=== PATIENT | female | born 1960 | race Caucasian/White ===

== ENCOUNTER 2019-04-28 17:40 | Outpatient (CLI) | payer OTHER, SELFPAY ==
--- NOTE | ~2019-04-28 | XR_ITS ---
EXAMINATION: XR chest 2V EXAM DATE: 04/28/2019 17:59 INDICATION: Cough, history of bronchitis and asthma. TECHNIQUE: Frontal and lateral projections of the chest obtained and reviewed. Comparison is made to prior examination from 09/12/2014. FINDINGS: There are cholecystectomy clips. The lungs are clear. There are no pleural effusions. Th e cardiomediastinal silhouette is within normal limits. There is no pneumothorax suspected. The bon es and soft tissues are unremarkable. IMPRESSION: No acute cardiopulmonary findings. Reviewed, dictated and finalized at location A. UCTION OFFICER
== END 2019-04-28 17:41 | disposition home or self-care (01) ==
LOC: ANHIMG 17:44
PROVIDERS: PCP Family Medicine; Visit Provider Family Medicine
DX: R05 Cough (principal)
CPT/HCPCS: 71046

== ENCOUNTER → 2019-07-19 10:40 | Outpatient (REF) | payer OTHER, SELFPAY | LOC: ANHLAB 10:40 | PROVIDERS: PCP Family Medicine; Visit Provider Nurse Practitioner | DX: D49.2 Neoplasm of unspecified behavior of bone, soft tissue, and skin (principal) | CPT/HCPCS: 88305 ==

== ENCOUNTER 2019-12-06 16:46 | Outpatient (CLI) | payer OTHER, SELFPAY ==
--- NOTE | ~2019-12-06 | MM_ITS ---
EXAMINATION: MM screening [facility] BI w autumn HISTORY: Screening TECHNIQUE: Craniocaudal and mediolateral oblique 3-D tomosynthesis images were obtained and synthetic 2-D images were generated. CAD analysis was submitted and interpreted. COMPARISON: Comparison to multiple prior studies sequentially, with oldest reviewed study dated 09/20. BREAST PARENCHYMAL COMPOSITION: There are scattered areas of fibroglandular density. FINDINGS: There is focal asymmetry laterally in the left breast on CC view. Right breast is stable wi thout evidence for malignancy. IMPRESSION: 1. Focal asymmetry laterally in the left breast on CC view. 2. Additional mammographic views and possible breast ultrasound are recommended. BI-RADS Category 0: Incomplete: Needs additional imaging evaluation. Reviewed, dictated and finalized at location A. IMPRESSION: 1. Focal asymmetry laterally in the left breast on CC view. 2. Additional mammographic views and possible breast ultrasound are recommended . BI-RADS Category 0: Incomplete: Needs additional imaging evaluation.
== END 2019-12-06 16:47 | disposition home or self-care (01) ==
PROVIDERS: PCP Family Medicine; Visit Provider Obstetrics & Gynecology
DX: Z12.31 Encounter for screening mammogram for malignant neoplasm of breast (principal); R92.8 Other abnormal and inconclusive findings on diagnostic imaging of breast
CPT/HCPCS: 77063; 77067

== ENCOUNTER 2019-12-20 13:54 | Outpatient (CLI) | payer OTHER, SELFPAY ==
--- NOTE | ~2019-12-20 | MMUS_ITS ---
EXAMINATION: MM diagnostic mammo unilat LT, US breast LT limited HISTORY: Left breast asymmetry on screening mammogram TECHNIQUE: Additional 3-D tomosynthesis images of the left breast were performed and synthetic 2-D im ages were generated. CAD analysis was submitted and interpreted. High resolution limited left breast ultrasound was performed. COMPARISON: 12/06/2019, 12/11/2018, 10/27/2017, 10/13/2015, 08/21/2012 FINDINGS: MAMMOGRAPHIC FINDINGS: A persistent asymmetry middle third of the outer breast at the 3:00 location 10 cm from the nipple torres s an appearance similar to prior mammograms with spot compression. There is no suspicious mass, calci fication, or architectural distortion. ULTRASOUND: There is no evidence of focal abnormal solid or cystic lesion in the vicinity of the mammographic fin ding in question. IMPRESSION: 1. No mammographic or sonographic evidence of malignancy. 2. Recommend routine screening mammography in one year. BI-RADS Category 2: Benign finding(s). Reviewed, dictated and finalized at location A. IMPRESSION: 1. No mammographic or sonographic evidence of malignancy. 2. Recommend routine screening mammography in one year. BI-RADS Category 2: Benign finding(s).
== END 2019-12-20 13:55 | disposition home or self-care (01) ==
PROVIDERS: PCP Family Medicine; Visit Provider Obstetrics & Gynecology
DX: R92.8 Other abnormal and inconclusive findings on diagnostic imaging of breast (principal)
CPT/HCPCS: 76642; 77065

== ENCOUNTER 2020-03-24 10:33 | Outpatient (CLI) | payer OTHER, SELFPAY ==
[2020-03-24 11:47] LABS: Alanine Aminotransferase 55 U/L (4-35); Albumin Level 3.9 g/dL (3.5-5.1); Alkaline Phosphatase 122 U/L (38-126); Anion Gap 2 mmol/L (8-16); Aspartate Amino Transferase 53 U/L (14-36); Bilirubin,Total 0.7 mg/dL (0.2-1.3); Blood Urea Nitrogen 16 mg/dL (7-17); Calcium 9.2 mg/dL (8.4-10.2); Carbon Dioxide 32 mmol/L (22-30); Chloride 104 mmol/L (98-107); Cholesterol 195 mg/dL (0-200); Estimated Glomerular Filt Rate > 60; Glucose 96 mg/dL (65-105); HDL Direct 30 mg/dL; Potassium 4.1 mmol/L (3.4-5.0); Sodium 138 mmol/L (137-145); Triglycerides 190 mg/dL (<150)
[2020-03-24 11:58] LABS: LDL Cholesterol Direct 137 mg/dL
[2020-03-24 12:09] LABS: Hemoglobin A1C 5.8 % (<5.7)
[2020-03-24 12:29] LABS: Free T4 Free Thyroxine 0.82 ng/mL (0.78-2.19)
== END 2020-03-24 10:34 | disposition home or self-care (01) ==
PROVIDERS: PCP Family Medicine; Visit Provider Physician Assistant
DX: E03.9 Hypothyroidism, unspecified (principal); R73.03 Prediabetes; E78.5 Hyperlipidemia, unspecified
CPT/HCPCS: 36415; 80053; 80061; 83036; 84439; 84443

== ENCOUNTER 2020-03-29 09:56 | Outpatient (CLI) | payer OTHER, SELFPAY ==
--- NOTE | ~2020-03-29 | US_ITS ---
EXAMINATION: US right upper quadrant EXAM DATE: 03/29/2020 10:25 INDICATION: R79.89 - Other specified abnormal findings of blood chemistry. TECHNIQUE: Multiple grayscale and Doppler images of the abdomen right upper quadrant were obtained (b y a technologist who performed the scan) and subsequently reviewed. Comparison is made to prior exami nation from 01/29/2008. FINDINGS: The pancreatic head and body are normal in appearance. The pancreatic tail is not visualized. There is echogenic liver parenchyma with poor penetration, hepatic steatosis. There are no focal liver le sions identified. There is no evidence of intrahepatic biliary duct dilation. Portal venous flow w as seen in the hepatopedal, normal direction and has normal Doppler waveform. No right-sided hydrone phrosis. Common bile duct measures 11 mm, which is dilated, but not uncommon following cholecystectomy. Gallbl adder fossa unremarkable. IMPRESSION: Hepatic steatosis. Reviewed, dictated and finalized at location B. L COMPANY TRUCK DRIVER IMPRESSION: Hepatic steatosis.
== END 2020-03-29 09:57 | disposition home or self-care (01) ==
PROVIDERS: PCP Family Medicine; Visit Provider Physician Assistant
DX: R79.89 Other specified abnormal findings of blood chemistry (principal); K76.0 Fatty (change of) liver, not elsewhere classified
CPT/HCPCS: 76705

== ENCOUNTER → 2020-05-14 08:17 | Outpatient (CLI) | payer OTHER, SELFPAY ==
[2020-05-14 20:23] LABS: SARS-CoV-2 RNA PCR Positive
== END ==
PROVIDERS: PCP Family Medicine; Visit Provider Family Medicine
DX: U07.1 COVID-19 (principal)
CPT/HCPCS: C9803; U0003; U0005

== ENCOUNTER → 2020-07-09 15:53 | Outpatient (REF) | payer OTHER, SELFPAY | LOC: ANHLAB 15:53 | PROVIDERS: PCP Family Medicine; Visit Provider Nurse Practitioner | DX: D49.2 Neoplasm of unspecified behavior of bone, soft tissue, and skin (principal) | CPT/HCPCS: 88305 ==

== ENCOUNTER 2020-12-22 11:40 | Outpatient (CLI) | payer OTHER, SELFPAY ==
--- NOTE | ~2020-12-22 | MM_ITS ---
EXAMINATION: MM screening [facility] BI w autumn HISTORY: Screening TECHNIQUE: Craniocaudal and mediolateral oblique 3-D tomosynthesis images were obtained and synthetic 2-D images were generated. CAD analysis was submitted and interpreted. COMPARISON: Comparison to multiple prior studies sequentially, with oldest reviewed study dated 10/12. BREAST PARENCHYMAL COMPOSITION: There are scattered areas of fibroglandular density. FINDINGS: There is no evidence of suspicious mass, calcification, or architectural distortion to sugg est malignancy in either breast. There has been no suspicious interval change. IMPRESSION: 1. No mammographic evidence of malignancy. 2. Recommend routine screening mammography in one year. BI-RADS Category 1: Negative Reviewed, dictated and finalized at location A.
[2020-12-22 11:58] LABS: Hematocrit 45.2 % (37.0-47.0); Hemoglobin 14.2 g/dL (12.0-15.0); Mean Corpuscular HGB Conc 31.4 g/dl (32-36); Mean Corpuscular Hemoglobin 29.8 pg (26-34); Mean Corpuscular Volume 94.8 fl (80-100); Mean Platelet Volume 11.8 fl (7.4-10.4); Platelet Count Result 186 k/mm3 (150-375); Red Blood Count 4.77 M/mm3 (4.2-5.4); Red Cell Distribution Width 13.4 % (11.5-14.5); White Blood Count 4.9 K/mm3 (4.5-10.0)
[2020-12-22 12:09] LABS: Hemoglobin A1C 5.9 % (<5.7)
[2020-12-22 12:11] LABS: Alanine Aminotransferase 68 U/L (4-35); Albumin Level 4.2 g/dL (3.5-5.1); Alkaline Phosphatase 125 U/L (38-126); Anion Gap 6 mmol/L (8-16); Aspartate Amino Transferase 54 U/L (14-36); Bilirubin,Total 0.7 mg/dL (0.2-1.3); Blood Urea Nitrogen 17 mg/dL (7-17); Calcium 9.3 mg/dL (8.4-10.2); Carbon Dioxide 30 mmol/L (22-30); Chloride 103 mmol/L (98-107); Cholesterol 219 mg/dL (0-200); Estimated Glomerular Filt Rate > 60; Glucose 104 mg/dL (65-110); HDL Direct 36 mg/dL; Potassium 4.4 mmol/L (3.4-5.0); Sodium 139 mmol/L (137-145); Triglycerides 134 mg/dL (<150)
[2020-12-22 12:22] LABS: LDL Cholesterol Direct 152 mg/dL
== END 2020-12-22 11:41 | disposition home or self-care (01) ==
PROVIDERS: PCP Family Medicine; Visit Provider Obstetrics & Gynecology
DX: Z12.31 Encounter for screening mammogram for malignant neoplasm of breast (principal); E78.2 Mixed hyperlipidemia; E11.9 Type 2 diabetes mellitus without complications; R53.83 Other fatigue
CPT/HCPCS: 36415; 77063; 77067; 80053; 80061; 83036; 84443; 85027

== ENCOUNTER 2021-01-10 07:40 | Outpatient (CLI) | payer OTHER, SELFPAY ==
--- NOTE | ~2021-01-10 | US_ITS ---
EXAMINATION: US abdomen limited EXAM DATE: 01/10/2021 08:02 INDICATION: R74.8 - Abnormal levels of other serum enzymes . TECHNIQUE: Multiple grayscale and Doppler images of the abdomen right upper quadrant were obtained (b y a technologist who performed the scan) and subsequently reviewed. Comparison is made to prior exami nation from 03/29/2020. FINDINGS: The pancreatic head and body are normal in appearance. The pancreatic tail is not visualized. There is echogenic liver parenchyma, hepatic steatosis. There are no focal liver lesions identified. Th ere is no evidence of intrahepatic biliary duct dilation. Portal venous flow was seen in the hepatop edal, normal direction and has normal Doppler waveform. No right-sided hydronephrosis. Common bile duct measures 5 mm, which is normal. The gallbladder fossa is unremarkable. IMPRESSION: Hepatic steatosis. Reviewed, dictated and finalized at location B. MATION AND CONTROLS SUPERVISOR IMPRESSION: Hepatic steatosis.
== END 2021-01-10 07:41 | disposition home or self-care (01) ==
PROVIDERS: PCP Family Medicine; Visit Provider Family Medicine
DX: R74.8 Abnormal levels of other serum enzymes (principal); K76.0 Fatty (change of) liver, not elsewhere classified
CPT/HCPCS: 76705

== ENCOUNTER 2021-06-13 08:51 | Outpatient (CLI) | payer OTHER, SELFPAY ==
--- NOTE | 2021-06-13 11:00 | NEURO_ITS ---
Impression: # Complains of pain in hands. # Right ulnar neuropathy across the elbow. # No Carpal Tunnel Syndrome. # Normal needle/EMG exam. Nerve Conduction Studies Anti Sensory Summary Table Stim Site NR Peak (ms) P-T Amp (?V) Site1 Site2 Delta-P (ms) Dist (cm) Rito (m/s) Left Median Anti Sensory (2-3nd Digit) Wrist 2.6 97.0 Wrist 2-3nd Digit 2.6 14.0 54 Wrist 2.6 72.4 Wrist 2-3nd Digit 2.6 14.0 54 Right Median Anti Sensory (2-3nd Digit) Wrist 2.3 85.0 Wrist 2-3nd Digit 2.3 14.0 61 Wrist 2.4 58.9 Wrist 2-3nd Digit 2.3 14.0 61 Left Radial Anti Sensory (Base 1st Digit) Wrist 1.7 39.0 Wrist Base 1st Digit 1.7 0.0 Right Radial Anti Sensory (Base 1st Digit) Wrist 2.5 17.0 Wrist Base 1st Digit 2.5 0.0 Left Ulnar Anti Sensory (5th Digit) Wrist 2.5 77.8 Wrist 5th Digit 2.5 14.0 56 Right Ulnar Anti Sensory (5th Digit) Wrist 2.3 54.1 Wrist 5th Digit 2.3 14.0 61 Motor Summary Table Stim Site NR Onset (ms) O-P Amp (mV) Site1 Site2 Delta-0 (ms) Dist (cm) Rito (m/s) Left Median Motor (Abd Poll Brev) Wrist 3.4 2.4 Elbow Wrist 4.7 26.0 55 Elbow 8.1 1.2 Right Median Motor (Abd Poll Brev) Wrist 2.9 4.0 Elbow Wrist 4.5 26.0 58 Elbow 7.4 1.9 Left Ulnar Motor (Abd Dig Minimi) Wrist 2.5 5.7 A Elbow Wrist 4.9 27.0 55 A Elbow 7.4 4.6 Right Ulnar Motor (Abd Dig Minimi) Wrist 2.5 4.9 A Elbow Wrist 5.9 27.0 46 A Elbow 8.4 3.2 B Elbow Wrist 3.6 20.0 56 B Elbow 6.1 2.6 F Wave Studies NR F-Lat (ms) L-R F-Lat (ms) Left Median (Mrkrs) (Abd Poll Brev) 27.47 0.75 Right Median (Mrkrs) (Abd Poll Brev) 26.72 0.75 Left Ulnar (Mrkrs) (Abd Dig Min) 26.90 0.75 Right Ulnar (Mrkrs) (Abd Dig Min) 26.15 0.75 EMG Side Muscle Nerve Root Ins Act Fibs Amp Dur Recrt Comment Right 1stDorInt Ulnar C8-T1 Nml Nml Nml Nml Nml Right Ext Indicis Radial (Post Int) C7-8 Nml Nml Nml Nml Nml Right Ext Digitorum Radial (Post Int) C7-8 Nml Nml Nml Nml Nml Right BrachioRad Radial C5-6 Nml Nml Nml Nml Nml Right PronatorTeres Median C6-7 Nml Nml Nml Nml Nml Right Abd Poll Brev Median C8-T1 Nml Nml Nml Nml Nml Left 1stDorInt Ulnar C8-T1 Nml Nml Nml Nml Nml Left Ext Indicis Radial (Post Int) C7-8 Nml Nml Nml Nml Nml Left Ext Digitorum Radial (Post Int) C7-8 Nml Nml Nml Nml Nml Left BrachioRad Radial C5-6 Nml Nml Nml Nml Nml Left PronatorTeres Median C6-7 Nml Nml Nml Nml Nml Left Abd Poll Brev Median C8-T1 Nml Nml Nml Nml Nml Right ABD Dig Min Ulnar C8-T1 Nml Nml Nml Nml Nml Left ABD Dig Min Ulnar C8-T1 Nml Nml Nml Nml Nml MTDD
== END 2021-06-13 08:52 | disposition home or self-care (01) ==
LOC: ANHNEURO 08:57
PROVIDERS: PCP Family Medicine; Visit Provider Plastic Surgery
DX: M79.642 Pain in left hand (principal); G56.01 Carpal tunnel syndrome, right upper limb
CPT/HCPCS: 95886; 95911

== ENCOUNTER 2021-06-29 09:15 | Outpatient (CLI) | payer OTHER, SELFPAY ==
--- NOTE | ~2021-06-29 | XR_ITS ---
EXAMINATION: XR hand RT min 3V INDICATION: Right hand pain TECHNIQUE: Three views of the right hand are obtained. COMPARISON: 02/17/2019 FINDINGS: Unchanged moderate osteoarthritis of the first carpometacarpal joint, the first interphalan geal joint, and the second and third distal interphalangeal joints. There is unchanged mild osteoarth ritis of the second and third metacarpophalangeal joints. There is no fracture. The soft tissues are normal. IMPRESSION: 1. Polyarticular osteoarthritis without significant change. Reviewed, dictated and finalized at location A.
--- NOTE | ~2021-06-29 | XR_ITS ---
EXAMINATION: XR hand LT min 3V INDICATION: Osteoarthritis at the first carpometacarpal joint TECHNIQUE: Three views of the left hand are obtained. COMPARISON: 02/17/2019 FINDINGS: There is advanced osteoarthritis of the first carpometacarpal joint, worsened [facility]. Mild osteoarthritis is noted in multiple interphalangeal joints. There is no fra cture. Bone alignment is normal. The soft tissues are unremarkable. IMPRESSION: 1. Advanced osteoarthritis of the first carpometacarpal joint with interval worsening. Reviewed, dictated and finalized at location A. IMPRESSION: 1. Advanced osteoarthritis of the first carpometacarpal joint with interval wor sening.
[2021-06-29 09:38] LABS: Hematocrit 44.8 % (37.0-47.0); Hemoglobin 13.9 g/dL (12.0-15.0); Mean Corpuscular Hemoglobin 29.4 pg (26-34); Mean Corpuscular Volume 94.7 fl (80-100); Mean Platelet Volume 11.6 fl (7.4-10.4); Platelet Count Result 195 k/mm3 (150-375); Red Blood Count 4.73 M/mm3 (4.2-5.4); Red Cell Distribution Width 13.3 % (11.5-14.5); White Blood Count 4.8 K/mm3 (4.5-10.0)
[2021-06-29 09:52] LABS: Alanine Aminotransferase 47 U/L (4-35); Albumin Level 4.2 g/dL (3.5-5.1); Alkaline Phosphatase 124 U/L (38-126); Anion Gap 5 mmol/L (8-16); Aspartate Amino Transferase 44 U/L (14-36); Bilirubin,Total 0.6 mg/dL (0.2-1.3); Blood Urea Nitrogen 20 mg/dL (7-17); Calcium 9.1 mg/dL (8.4-10.2); Carbon Dioxide 29 mmol/L (22-30); Chloride 105 mmol/L (98-107); Cholesterol 195 mg/dL (0-200); Estimated Glomerular Filt Rate > 60; Glucose 99 mg/dL (65-110); HDL Direct 37 mg/dL; Potassium 4.1 mmol/L (3.4-5.0); Sodium 139 mmol/L (137-145); Triglycerides 107 mg/dL (<150)
[2021-06-29 10:03] LABS: LDL Cholesterol Direct 123 mg/dL
[2021-06-29 10:09] LABS: Hemoglobin A1C 5.7 % (<5.7)
[2021-06-29 10:36] LABS: Free T4 Free Thyroxine 0.83 ng/mL (0.78-2.19)
== END 2021-06-29 09:16 | disposition home or self-care (01) ==
PROVIDERS: PCP Family Medicine; Referring Provider Plastic Surgery; Visit Provider Physician Assistant
DX: M19.041 Primary osteoarthritis, right hand (principal); M19.042 Primary osteoarthritis, left hand; E83.119 Hemochromatosis, unspecified; R73.09 Other abnormal glucose; Z13.1 Encounter for screening for diabetes mellitus; E03.9 Hypothyroidism, unspecified; R53.83 Other fatigue; E78.5 Hyperlipidemia, unspecified
CPT/HCPCS: 36415; 73130; 80053; 80061; 83036; 84439; 84443; 85027

== ENCOUNTER 2022-02-08 09:08 | Outpatient (CLI) | payer OTHER, SELFPAY ==
--- NOTE | ~2022-02-08 | MM_ITS ---
EXAMINATION: MM screening [facility] BI w autumn HISTORY: Screening TECHNIQUE: Craniocaudal and mediolateral oblique 3-D tomosynthesis images were obtained and synthetic 2-D images were generated. CAD analysis was submitted and interpreted. COMPARISON: Comparison to multiple prior studies sequentially, with oldest reviewed study dated 10/13. BREAST PARENCHYMAL COMPOSITION: There are scattered areas of fibroglandular density. FINDINGS: There is no evidence of suspicious mass, calcification, or architectural distortion to sugg est malignancy in either breast. There has been no suspicious interval change. IMPRESSION: 1. No mammographic evidence of malignancy. 2. Recommend routine screening mammography in one year. BI-RADS Category 1: Negative Reviewed, dictated and finalized at location A. NISTRATIVE STAFF SUPERVISOR
== END 2022-02-08 09:09 | disposition home or self-care (01) ==
PROVIDERS: PCP Family Medicine; Visit Provider Obstetrics & Gynecology
DX: Z12.31 Encounter for screening mammogram for malignant neoplasm of breast (principal)
CPT/HCPCS: 77063; 77067

== ENCOUNTER 2022-03-01 10:12 | Outpatient (CLI) | payer OTHER, SELFPAY ==
[2022-03-01 10:26] LABS: Hematocrit 44.2 % (37.0-47.0); Hemoglobin 13.8 g/dL (12.0-15.0); Mean Corpuscular HGB Conc 31.2 g/dl (32-36); Mean Corpuscular Volume 96.1 fl (80-100); Mean Platelet Volume 11.7 fl (7.4-10.4); Platelet Count Result 213 k/mm3 (150-375); White Blood Count 4.5 K/mm3 (4.5-10.0)
[2022-03-01 10:42] LABS: Alanine Aminotransferase 64 U/L (6-35); Albumin Level 4.1 g/dL (3.5-5.1); Alkaline Phosphatase 132 U/L (38-126); Anion Gap 3 mmol/L (8-16); Aspartate Amino Transferase 70 U/L (14-36); Bilirubin,Total 0.3 mg/dL (0.2-1.3); Blood Urea Nitrogen 9 mg/dL (7-17); Calcium 8.9 mg/dL (8.4-10.2); Carbon Dioxide 29 mmol/L (22-30); Chloride 105 mmol/L (98-107); Cholesterol 215 mg/dL (0-200); Estimated Glomerular Filt Rate > 60; Glucose 89 mg/dL (65-110); HDL Direct 45 mg/dL; Potassium 4.4 mmol/L (3.4-5.0); Sodium 137 mmol/L (137-145); Triglycerides 96 mg/dL (<150)
[2022-03-01 10:51] LABS: Hemoglobin A1C 5.7 % (<5.7)
[2022-03-01 10:53] LABS: LDL Cholesterol Direct 137 mg/dL
[2022-03-01 10:58] LABS: Free T4 Free Thyroxine 0.89 ng/mL (0.78-2.19)
== END 2022-03-01 10:13 | disposition home or self-care (01) ==
PROVIDERS: PCP Family Medicine; Visit Provider Physician Assistant
DX: Z00.00 Encounter for general adult medical examination without abnormal findings (principal); Z13.1 Encounter for screening for diabetes mellitus; E11.9 Type 2 diabetes mellitus without complications; Z13.220 Encounter for screening for lipoid disorders; R53.83 Other fatigue; D64.9 Anemia, unspecified
CPT/HCPCS: 36415; 80053; 80061; 83036; 84439; 84443; 85027

== ENCOUNTER 2022-04-19 12:28 | Outpatient (CLI) | payer OTHER, SELFPAY ==
--- NOTE | ~2022-04-19 | XR_ITS ---
Right wrist Technique: PA, oblique, lateral, and ulnar deviation views were obtained. Clinical History: First digit pain Findings: No acute fracture or dislocation is seen. There is moderate degenerative change at the firs t CMC joint and the interphalangeal joint of the thumb. Soft tissues are unremarkable. Impression: Moderate degenerative change of the first CMC joint and the interphalangeal joint of the thumb. Reviewed, dictated and finalized at location M. VISION PRODUCTION TECHNICIAN Impression: Moderate degenerative change of the first CMC joint and the interphalangeal glenn nt of the thumb.
--- NOTE | ~2022-04-19 | XR_ITS ---
Right Hand Technique: PA, oblique, and lateral views were obtained. Clinical History: First digit pain Findings: No acute fracture or dislocation is seen. There is moderate osteoarthritis of the first CMC joint and the interphalangeal joint of the thumb. There is mild degenerative change of the second an d third DIP joints. Remaining joint spaces are preserved. Soft tissues are unremarkable. Impression: Moderate degenerative change of the first CMC joint and interphalangeal joint of the thumb. Mild degenerative change of the second and third DIP joints. Reviewed, dictated and finalized at location M. WARE TEST MANAGER Impression: Moderate degenerative change of the first CMC joint and interphalangeal joint o f the thumb. Mild degenerative change of the second and third DIP joints.
--- NOTE | ~2022-04-19 | XR_ITS ---
Right Knee Technique: AP, lateral, and sunrise views were obtained. Clinical History: Pain Findings: No fracture or dislocation is seen. Osseous alignment is anatomic. Joint spaces are preserv ed without degenerative or erosive change. Soft tissues are unremarkable. No joint effusion is seen. Impression: Unremarkable right knee radiographs. Reviewed, dictated and finalized at location . FABRIC MACHINE OPERATOR Impression: Unremarkable right knee radiographs.
== END 2022-04-19 12:29 | disposition home or self-care (01) ==
PROVIDERS: PCP Family Medicine; Visit Provider Family Medicine
DX: M25.539 Pain in unspecified wrist (principal); M25.569 Pain in unspecified knee; M19.041 Primary osteoarthritis, right hand
CPT/HCPCS: 73110; 73130; 73562

== ENCOUNTER 2022-05-26 08:53 | Day surgery (SDC) | payer OTHER, SELFPAY ==
[2022-05-01 10:33] VITALS: BMI 34.2
[2022-05-15 09:20] VITALS: BMI 34.0
--- NOTE | 2022-05-26 07:40 | WPDANESEPPF ---
Anes - Initial Pre Proc Eval Procedure: Operation Date: 05/26/22 10:30 Proposed Procedures p Screening Colonoscopy - Gilbert Jernigan MD Date/Time: 05/26/22 07:40 Surgeon: Gilbert Jernigan MD Pre Op Diagnosis: Neoplasm Screening Patient Data Age: 62 Gender: F Height: 1.6 m Weight: 87 kg Allergies Allergy/AdvReac Type Severity Reaction Status Date / Time adhesive Allergy Mild IRRITATION/SWELLING Verified 05/26/22 09:11 IN MOUTH latex Allergy Unknown red face Verified 05/26/22 09:11 and rash sulfamethizole Allergy Unknown Erythema Verified 05/26/22 09:11 sulfamethoxazole Allergy Unknown RED FACE Verified 05/26/22 09:11 AND RASH trimethoprim Allergy Unknown RED FACE Verified 05/26/22 09:11 AND RASH prednisone AdvReac Mild facial Verified 05/26/22 09:11 flushing Home Medications Medication Instructions Recorded Confirmed Type calcium polycarbophil 625 mg 1,250 mg PO DAILY 08/14/20 05/26/22 History tablet (FiberCon) multivitamin (One Daily 1 tablet PO DAILY 02/05/22 05/26/22 History Multivitamin tablet) levothyroxine 50 mcg tablet See Rx Instructions .Route 03/02/22 05/26/22 Rx .COMPLEX #90 tabs fexofenadine-pseudoephedrine ER 1 tablet PO DAILY #30 tabs 04/16/22 05/26/22 Rx 180 mg-240 mg tablet,ext.release 24 hr (Alisha-D 24 Hour) meloxicam 7.5 mg tablet 7.5 mg PO DAILY #30 tabs 04/18/22 05/26/22 Rx sertraline 100 mg tablet 100 mg PO DAILY #90 tabs 04/18/22 05/26/22 Rx sodium,potassium,mag sulfates 17.5 See Rx Instructions PO .COMPLEX 05/01/22 05/26/22 Rx gram-3.13 gram-1.6 gram oral soln #354 mL (Suprep Bowel Prep Kit) Patient hx anesthesia problems: none Family hx anesthesia problems: none Results Review: All pre-operative results and documents have been reviewed as part of the pre-operative evaluation. [facility] Past Medical History Medical History CMC arthritis, thumb, degenerative Collapsed lung (~12/1957) Depression Elevated liver enzymes Hemochromatosis Hypothyroidism Obesity (BMI 30-39.9) Surgical History Surgical History History of esophagogastroduodenoscopy (EGD) History of tonsillectomy Family History Family History Mother Family history of lung cancer Eczema Other Diabetes mellitus Family history of arthritis Hypertension Social History Social History Smoking status: Never smoker Second hand tobacco smoke exposure: No Alcohol intake: never Substance use: never Substance use type: does not use Lack of Transportation: No Lack of Food: Never True Current Housing: I Have Housing Concerned About Future Housing: No Difficulty Paying Gas/Electric Bills: No Difficulty Paying for Meds: No Currently Unemployed: No Education: Trade/Vocational Certificate Difficulty w/ Childcare or Family Care: No Living arrangements: alone Gender identity (if verbalized by the patient): Female Spiritual care concerns: No Agree to blood products: Yes Anes - Eval Final PreProcedure Day of Procedure 05/26/22 07:40 Patient weight: obese Heart: regular rate and rhythm Lungs: clear to auscultation and normal air movement Airway: Mallampati scale class II Neurological: alert and oriented Last oral intake: >/= 8 hours ASA classification: III Emergent: no Anesthetic plan: proceed Anesthesia type and monitoring: general GIVS Results Review: All pre-operative results and documents have been reviewed as part of the pre-operative evaluation. Informed Consent: The patient's anesthetic plan and its attendant risks and benefits were discussed with the patient/family/POA. Questions were solicited and answers provided to the satisfaction of the patient/family/POA.
[2022-05-26 09:10] VITALS: BP 133/91; PULSE 109; RESP 20; TEMP 36.7; O2SAT 97
[2022-05-26] MEDS: LACTATED RINGERS 1,000 ML 150 ML IV CONT (09:20)
--- NOTE | 2022-05-26 09:30 | PM.HPGS ---
History of Present Illness History of Present Illness Consent: Risks, benefits, and alternatives have been discussed and questions answered. Patient agrees to proceed with procedure. Chief complaint: Neoplasm Screening Narrative: Justine Koroma is a 62 year old female Presents for screening colonoscopy. Patient has a prior history of colon polyps. This is a distant history. Patient's current weight appetite and bowel movements are normal. Previous colonoscopies most recently 2012. Patient presents today for neoplasia screening. She reports that her current weight appetite bowel movements are normal. Review of Systems Review of Systems: Review of systems noncontributory. [facility] Past Medical History Medical History CMC arthritis, thumb, degenerative Collapsed lung (~12/1957) Depression Elevated liver enzymes Hemochromatosis Hypothyroidism Obesity (BMI 30-39.9) Surgical History Surgical History History of esophagogastroduodenoscopy (EGD) History of tonsillectomy Family History Family History Mother Family history of lung cancer Eczema Other Diabetes mellitus Family history of arthritis Hypertension Social History Social History Smoking status: Never smoker Second hand tobacco smoke exposure: No Alcohol intake: never Substance use: never Substance use type: does not use Lack of Transportation: No Lack of Food: Never True Current Housing: I Have Housing Concerned About Future Housing: No Difficulty Paying Gas/Electric Bills: No Difficulty Paying for Meds: No Currently Unemployed: No Education: Trade/Vocational Certificate Difficulty w/ Childcare or Family Care: No Living arrangements: alone Gender identity (if verbalized by the patient): Female Spiritual care concerns: No Agree to blood products: Yes Meds Home Medications and Allergies Home Medications Medication Instructions Recorded Confirmed Type calcium polycarbophil 625 mg 1,250 mg PO DAILY 08/14/20 05/26/22 History tablet (FiberCon) multivitamin (One Daily 1 tablet PO DAILY 02/05/22 05/26/22 History Multivitamin tablet) levothyroxine 50 mcg tablet See Rx Instructions .Route 03/02/22 05/26/22 Rx .COMPLEX #90 tabs fexofenadine-pseudoephedrine ER 1 tablet PO DAILY #30 tabs 04/16/22 05/26/22 Rx 180 mg-240 mg tablet,ext.release 24 hr (Alisha-D 24 Hour) meloxicam 7.5 mg tablet 7.5 mg PO DAILY #30 tabs 04/18/22 05/26/22 Rx sertraline 100 mg tablet 100 mg PO DAILY #90 tabs 04/18/22 05/26/22 Rx sodium,potassium,mag sulfates 17.5 See Rx Instructions PO .COMPLEX 05/01/22 05/26/22 Rx gram-3.13 gram-1.6 gram oral soln #354 mL (Suprep Bowel Prep Kit) Allergies Allergy/AdvReac Type Severity Reaction Status Date / Time adhesive Allergy Mild IRRITATION/SWELLING Verified 05/26/22 09:11 IN MOUTH latex Allergy Unknown red face Verified 05/26/22 09:11 and rash sulfamethizole Allergy Unknown Erythema Verified 05/26/22 09:11 sulfamethoxazole Allergy Unknown RED FACE Verified 05/26/22 09:11 AND RASH trimethoprim Allergy Unknown RED FACE Verified 05/26/22 09:11 AND RASH prednisone AdvReac Mild facial Verified 05/26/22 09:11 flushing Vital Signs Vital Signs - 24 hr 05/26/22 09:10 Temperature 98.0 F Pulse Rate 109 H Respiratory Rate 20 Blood Pressure 133/91 H Pulse Oximetry 97 Oxygen Delivery Room Air Exam Narrative: Physical exam reveals patient to be alert. Vital signs stable. HEENT exam is unremarkable. Patient is anicteric. Lungs are clear to auscultation and percussion. Heart is without murmur or extra sounds. Abdomen bowel sounds are present soft nontender with no organomegaly. Digital external rectal exam is normal.
[2022-05-26] MEDS: SIMETHICONE ORAL SUSPENSION 20 MG/0.3 ML 30 ML BOTTLE 0.6 ML IRRIGATION (10:58)
[2022-05-26 11:07] VITALS: BP 125/49; PULSE 82; RESP 16; O2SAT 96
[2022-05-26 11:17] VITALS: BP 111/66; PULSE 71; RESP 15; O2SAT 100
[2022-05-26 11:27] VITALS: BP 117/72; PULSE 70; RESP 15; O2SAT 100
--- NOTE | 2022-05-26 14:59 | WPDANESPN ---
Anes - Prog Note Post-Op Date/Time: 05/26/22 14:59 Cardiovascular status: normal Respiratory status: normal Airway patency: baseline Mental status: baseline Post-Op hydration status: normal Vital Signs: Last Vital Signs Temp 36.7 C 05/26/22 09:10 Pulse 70 05/26/22 11:27 Resp 15 05/26/22 11:27 BP 117/72 05/26/22 11:27 Pulse Ox 100 05/26/22 11:27 O2 Del Method Room Air 05/26/22 11:27 Pain Score (VAS): 0 I/O: Intake & Output 05/25/22 05/26/22 05/26/22 23:59 07:59 15:59 Intake Total 900 Balance 900 Post-procedural complaints: none Patient Feedback: Patient satisfied with anesthetic care.
== END 2022-05-26 11:50 | disposition home or self-care (01) ==
PROVIDERS: PCP Family Medicine; Visit Provider Internal Medicine Gastroenterology
PROC: 0DJD8ZZ Inspection of Lower Intestinal Tract, Via Natural or Artificial Opening Endoscopic (ICD-10-PCS; CPT 45378; principal; 2022-05-26 10:30)
DX: Z12.11 Encounter for screening for malignant neoplasm of colon (principal)
CPT/HCPCS: 45385

== ENCOUNTER 2022-05-26 09:00 | Outpatient (NON) | payer OTHER, SELFPAY | END 2022-05-26 09:01 | disposition home or self-care (01) | LOC: ANHLAB 05-27 07:38 | PROVIDERS: PCP Family Medicine; Visit Provider Internal Medicine Gastroenterology | DX: Z12.11 Encounter for screening for malignant neoplasm of colon (principal) | CPT/HCPCS: 88305 ==

== ENCOUNTER 2022-08-23 12:16 | Outpatient (CLI) | payer OTHER, SELFPAY ==
[2022-08-23 12:37] LABS: Hematocrit 44.1 % (37.0-47.0); Hemoglobin 14.2 g/dL (12.0-15.0); Mean Corpuscular HGB Conc 32.2 g/dl (32-36); Mean Corpuscular Hemoglobin 30.4 pg (26-34); Mean Corpuscular Volume 94.4 fl (80-100); Mean Platelet Volume 11.7 fl (7.4-10.4); Platelet Count Result 191 k/mm3 (150-375); Red Blood Count 4.67 M/mm3 (4.2-5.4); Red Cell Distribution Width 13.3 % (11.5-14.5); White Blood Count 4.5 K/mm3 (4.5-10.0)
[2022-08-23 12:45] LABS: Alanine Aminotransferase 64 U/L (6-35); Albumin Level 4.1 g/dL (3.5-5.1); Alkaline Phosphatase 101 U/L (38-126); Anion Gap 4 mmol/L (8-16); Aspartate Amino Transferase 52 U/L (14-36); Bilirubin,Total 0.7 mg/dL (0.2-1.3); Blood Urea Nitrogen 16 mg/dL (7-17); Carbon Dioxide 30 mmol/L (22-30); Chloride 105 mmol/L (98-107); Cholesterol 211 mg/dL (0-200); Estimated Glomerular Filt Rate > 60; Glucose 98 mg/dL (65-110); HDL Direct 45 mg/dL; Potassium 4.1 mmol/L (3.4-5.0); Sodium 139 mmol/L (137-145); Triglycerides 94 mg/dL (<150)
[2022-08-23 12:57] LABS: LDL Cholesterol Direct 141 mg/dL
[2022-08-23 13:01] LABS: Free T4 Free Thyroxine 0.83 ng/mL (0.78-2.19)
== END 2022-08-23 12:17 | disposition home or self-care (01) ==
LOC: ANHLAB 12:17
PROVIDERS: PCP Family Medicine; Visit Provider Physician Assistant
DX: R53.83 Other fatigue (principal); D64.9 Anemia, unspecified; Z13.220 Encounter for screening for lipoid disorders; Z13.1 Encounter for screening for diabetes mellitus
CPT/HCPCS: 36415; 80053; 80061; 84439; 84443; 85027

== ENCOUNTER 2022-09-23 15:00 | Outpatient (NON) | payer OTHER, SELFPAY | END 2022-09-23 15:01 | disposition home or self-care (01) | LOC: ANHLAB 09-24 15:02 | PROVIDERS: PCP Family Medicine; Visit Provider Nurse Practitioner | DX: D49.2 Neoplasm of unspecified behavior of bone, soft tissue, and skin (principal) | CPT/HCPCS: 88305 ==

== ENCOUNTER 2023-05-12 15:53 | Outpatient (CLI) | payer OTHER, SELFPAY ==
--- NOTE | ~2023-05-12 | MM_ITS ---
EXAMINATION: MM screening [facility] BI w autumn HISTORY: Screening TECHNIQUE: Craniocaudal and mediolateral oblique 3-D tomosynthesis images were obtained and synthetic 2-D images were generated. CAD analysis was submitted and interpreted. COMPARISON: Comparison to multiple prior studies sequentially, with oldest reviewed study dated 11/23. BREAST PARENCHYMAL COMPOSITION: Not dense: There are scattered areas of fibroglandular density. FINDINGS: Stable benign-appearing intramammary lymph node upper outer quadrant of the left breast, mi ddle third. There is no evidence of suspicious mass, calcification, or architectural distortion to knight ggest malignancy in either breast. There has been no suspicious interval change. IMPRESSION: 1. No mammographic evidence of malignancy. 2. Recommend routine screening mammography in one year. BI-RADS Category 2: Benign finding(s). Reviewed, dictated and finalized at location A.
== END 2023-05-12 15:54 | disposition home or self-care (01) ==
PROVIDERS: PCP Family Medicine; Visit Provider Obstetrics & Gynecology
DX: Z12.31 Encounter for screening mammogram for malignant neoplasm of breast (principal)
CPT/HCPCS: 77063; 77067

== ENCOUNTER 2023-05-22 08:51 | Outpatient (CLI) | payer OTHER, SELFPAY ==
--- NOTE | ~2023-05-22 | XR_ITS ---
EXAMINATION: XR shoulder RT min 2V INDICATION: Right shoulder pain TECHNIQUE: Three views of the right shoulder are submitted. COMPARISON: 06/27/2015 FINDINGS: Normal alignment. No fracture. Glenohumeral and acromioclavicular joint spaces are normal. Heterotopic ossification projects lateral to the humeral head, probable calcific tendinitis. IMPRESSION: 1. No acute osseous abnormality. Reviewed, dictated and finalized at location A.
[2023-05-22 09:23] LABS: Basophils Absolute Auto 0.1 K/mm3 (0.0-0.1); Basophils Percent Auto 1.9 % (0.2-1.2); Eosinophils Absolute Auto 0.3 K/mm3 (0-0.3); Eosinophils Percent Auto 6.8 % (0-4.4); Hematocrit 45.7 % (37.0-47.0); Hemoglobin 14.2 g/dL (12.0-15.0); Immature Granulocyte Absolute 0.01 K/mm3 (0.00-0.031); Immature Granulocyte Percent A 0.2 % (0-0.5); Lymphocytes Absolute Auto 1.53 K/mm3 (0.9-3.2); Lymphocytes Percent Auto 31.5 % (18.3-44.2); Mean Corpuscular HGB Conc 31.1 g/dl (32-36); Mean Corpuscular Hemoglobin 29.5 pg (26-34); Mean Corpuscular Volume 94.8 fl (80-100); Monocytes Absolute Auto 0.4 K/mm3 (0.1-0.6); Monocytes Percent Auto 7.4 % (2.6-8.5); Neutrophils Absolute Auto 2.5 K/mm3 (1.3-6.7); Neutrophils Percent Auto 52.2 % (45.5-73.1); Platelet Count Result 190 k/mm3 (150-375); Red Blood Count 4.82 M/mm3 (4.2-5.4); Red Cell Distribution Width 13.9 % (11.5-14.5); White Blood Count 4.9 K/mm3 (4.5-10.0)
[2023-05-22 09:31] LABS: Alanine Aminotransferase 59 U/L (6-35); Albumin Level 3.9 g/dL (3.5-5.1); Alkaline Phosphatase 112 U/L (38-126); Anion Gap 2 mmol/L (4-12); Aspartate Amino Transferase 53 U/L (14-36); Bilirubin,Total 0.8 mg/dL (0.2-1.3); Blood Urea Nitrogen 18 mg/dL (7-17); Calcium 9.3 mg/dL (8.4-10.2); Carbon Dioxide 31 mmol/L (22-30); Chloride 105 mmol/L (98-107); Cholesterol 214 mg/dL (0-200); Estimated Glomerular Filt Rate > 60; Glucose 101 mg/dL (65-110); HDL Direct 45 mg/dL; Potassium 4.2 mmol/L (3.4-5.0); Sodium 138 mmol/L (137-145); Triglycerides 89 mg/dL (<150)
[2023-05-22 09:42] LABS: LDL Cholesterol Direct 160 mg/dL
[2023-05-22 10:50] LABS: Hemoglobin A1C 6.3 % (<5.7)
[2023-05-22 12:10] LABS: Free T4 Free Thyroxine Reflex 0.82 ng/dL (0.78-2.19)
== END 2023-05-22 08:52 | disposition home or self-care (01) ==
LOC: ANHLAB 08:53
PROVIDERS: PCP Family Medicine; Visit Provider Family Medicine
DX: M25.511 Pain in right shoulder (principal); E03.9 Hypothyroidism, unspecified; R53.83 Other fatigue; E78.2 Mixed hyperlipidemia; R73.03 Prediabetes
CPT/HCPCS: 36415; 73030; 80053; 80061; 83036; 84439; 84443; 84480; 85025

== ENCOUNTER 2023-11-19 17:00 | Outpatient (CLI) | payer OTHER, SELFPAY ==
--- NOTE | ~2023-11-19 | XR_ITS ---
EXAM: XR foot RT min 3V DATE: 11/19/2023 17:14 HISTORY: M79.671 - Pain in right foot, DORSAL, 3 WKS, NKI . COMPARISON: 12/26/2014, report only. FINDINGS: Osteopenia. No fracture or dislocation. No lytic or blastic lesion. Mild degenerative lizarraga ge at the first MTP joint and multiple midfoot joints. Plantar enthesopathy. No erosion or periosteal change. Soft tissues within normal limits. IMPRESSION: No acute osseous finding in the right foot. Reviewed, dictated and finalized at location K.
== END 2023-11-19 17:01 | disposition home or self-care (01) ==
LOC: ANHIMG 17:01
PROVIDERS: PCP Family Medicine; Visit Provider Family Medicine
DX: M79.671 Pain in right foot (principal)
CPT/HCPCS: 73630

== ENCOUNTER 2023-11-21 12:02 | Outpatient (CLI) | payer OTHER, SELFPAY ==
[2023-11-21 12:29] LABS: Basophils Absolute Auto 0.1 K/mm3 (0.0-0.1); Basophils Percent Auto 2.2 % (0.2-1.2); Eosinophils Absolute Auto 0.5 K/mm3 (0-0.3); Eosinophils Percent Auto 8.6 % (0-4.4); Hematocrit 46.1 % (37.0-47.0); Immature Granulocyte Absolute 0.01 K/mm3 (0.00-0.031); Immature Granulocyte Percent A 0.2 % (0-0.5); Lymphocytes Percent Auto 25.9 % (18.3-44.2); Mean Corpuscular HGB Conc 32.5 g/dl (32-36); Mean Corpuscular Hemoglobin 30.9 pg (26-34); Mean Corpuscular Volume 95.1 fl (80-100); Mean Platelet Volume 12.3 fl (7.4-10.4); Monocytes Absolute Auto 0.4 K/mm3 (0.1-0.6); Monocytes Percent Auto 7.3 % (2.6-8.5); Neutrophils Absolute Auto 3.2 K/mm3 (1.3-6.7); Neutrophils Percent Auto 55.8 % (45.5-73.1); Platelet Count Result 195 k/mm3 (150-375); Red Blood Count 4.85 M/mm3 (4.2-5.4); Red Cell Distribution Width 13.3 % (11.5-14.5); White Blood Count 5.8 K/mm3 (4.5-10.0)
[2023-11-21 12:39] LABS: Alanine Aminotransferase 54 U/L (6-35); Albumin Level 4.2 g/dL (3.5-5.1); Alkaline Phosphatase 92 U/L (38-126); Anion Gap 6 mmol/L (4-12); Aspartate Amino Transferase 56 U/L (14-36); Bilirubin,Total 0.8 mg/dL (0.2-1.3); Blood Urea Nitrogen 17 mg/dL (7-17); Carbon Dioxide 30 mmol/L (22-30); Chloride 103 mmol/L (98-107); Cholesterol 212 mg/dL (0-200); Estimated Glomerular Filt Rate > 60; Glucose 100 mg/dL (65-110); HDL Direct 45 mg/dL; Iron 74 ug/dL (37-170); Potassium 3.9 mmol/L (3.4-5.0); Sodium 139 mmol/L (137-145); Triglycerides 124 mg/dL (<150)
[2023-11-21 12:49] LABS: Percent Iron Saturation 21 % (20-50)
[2023-11-21 12:50] LABS: LDL Cholesterol Direct 139 mg/dL
[2023-11-21 13:08] LABS: Hemoglobin A1C 6.1 % (<5.7)
[2023-11-21 13:10] LABS: Hepatitis B Surface Antigen Negative (Negative)
[2023-11-21 13:16] LABS: HAV RESULT Negative (Negative); Hepatitis B Core IgM Result Negative (Negative)
[2023-11-21 13:27] LABS: Hepatitis C Virus Antibody Negative (Negative)
== END 2023-11-21 12:03 | disposition home or self-care (01) ==
PROVIDERS: PCP Family Medicine; Visit Provider Family Medicine
DX: E03.9 Hypothyroidism, unspecified (principal); R73.03 Prediabetes; E78.2 Mixed hyperlipidemia; R53.83 Other fatigue; R74.8 Abnormal levels of other serum enzymes
CPT/HCPCS: 36415; 80048; 80061; 80074; 80076; 82728; 83036; 83540; 83550; 84443; 85025

== ENCOUNTER 2023-12-30 08:09 | Outpatient (CLI) | payer OTHER, SELFPAY ==
--- NOTE | ~2023-12-30 | US_ITS ---
Limited ABDOMINAL ULTRASOUND Ordering provider: Arabella Machuca APRN History: . elevated liver enzymes . Comparison: None. FINDINGS: LIVER: Normal size and increased echotexture. No focal hepatic lesions or perihepatic fluid collectio ns are identified. Portal vein flow is normal. GALLBLADDER: Status post cholecystectomy. BILIARY DUCTS: No evidence for intra or extrahepatic biliary dilation. Common bile duct measures 5.1 mm in diameter which is within normal limits. PANCREAS: Not well visualized otherwise, Normal echotexture and size. UPPER ABDOMINAL AORTA: Normal in caliber. IVC: Patent. FREE FLUID: None. IMPRESSION: Fat infiltration of the liver. Otherwise, Unremarkable limited ultrasound of the abdomen. Reviewed, dictated and finalized at location A. E CARE SURGEON IMPRESSION: Fat infiltration of the liver. Otherwise, Unremarkable limited ultrasound of th e abdomen.
[2023-12-30 11:41] LABS: Iron 60 ug/dL (37-170)
[2023-12-30 11:52] LABS: Percent Iron Saturation 16 % (20-50)
[2023-12-31 07:48] LABS: GGT 55 U/L (3-65)
[2024-01-01 11:43] LABS: Alpha Fetoprotein Tumor Marker 8.8 ng/mL
[2024-01-04 16:08] LABS: Mitochondrial (M2) Ab (IgG) <20.0 U
[2024-01-05 02:54] LABS: Alpha-1-Antitrypsin, QN 150 mg/dL (83-199); Ceruloplasmin 26 mg/dL (14-48)
[2024-01-05 06:25] LABS: Actin Antibody (IgG) 24 U (<20)
== END 2023-12-30 08:10 | disposition home or self-care (01) ==
PROVIDERS: PCP Family Medicine; Visit Provider Nurse Practitioner Family
DX: K76.0 Fatty (change of) liver, not elsewhere classified (principal)
CPT/HCPCS: 36415; 76705; 81596; 82103; 82105; 82390; 82728; 82977; 83520; 83540; 83550; 86038; 86039; 86364

== ENCOUNTER 2024-01-27 17:18 | Outpatient (CLI) | payer OTHER, SELFPAY | END 2024-01-27 17:19 | disposition home or self-care (01) | LOC: ANHLAB 17:20 | PROVIDERS: PCP Family Medicine; Visit Provider Nurse Practitioner Family | DX: K76.0 Fatty (change of) liver, not elsewhere classified (principal); R74.8 Abnormal levels of other serum enzymes | CPT/HCPCS: 36415; 81596 ==

== ENCOUNTER 2024-05-13 08:02 | Outpatient (CLI) | payer OTHER, SELFPAY ==
--- NOTE | ~2024-05-13 | MM_ITS ---
EXAMINATION: MM screening [facility] w autumn HISTORY: Screening TECHNIQUE: Craniocaudal and mediolateral oblique 3-D tomosynthesis images were obtained and synthetic 2-D images were generated. CAD analysis was submitted and interpreted. COMPARISON: Comparison to multiple prior studies sequentially, with oldest reviewed study dated 11/23. BREAST PARENCHYMAL COMPOSITION: Not dense: There are scattered areas of fibroglandular density. FINDINGS: There is no evidence of suspicious mass, calcification, or architectural distortion to sugg est malignancy in either breast. There has been no suspicious interval change. IMPRESSION: 1. No mammographic evidence of malignancy. 2. Recommend routine screening mammography in one year. BI-RADS Category 1: Negative Reviewed, dictated and finalized at location B.
== END 2024-05-13 08:03 | disposition home or self-care (01) ==
LOC: ANHIMG 08:05
PROVIDERS: PCP Family Medicine; Visit Provider Obstetrics & Gynecology
DX: Z12.31 Encounter for screening mammogram for malignant neoplasm of breast (principal)
CPT/HCPCS: 77063; 77067

== ENCOUNTER 2024-05-28 13:28 | Outpatient (CLI) | payer OTHER, SELFPAY ==
--- NOTE | ~2024-05-28 | MR_ITS ---
EXAMINATION: MR abdomen wo/w con DATE: 05/29/2024 21:55 CDT INDICATION: Personal history of MUNOZ cirrhosis with elevated alpha-fetoprotein TECHNIQUE: Magnetic resonance imaging (MRI) of the abdomen was performed without intravenous contrast . Sequences included coronal T2-weighted SS-FSE, coronal and axial FS 2D-FIESTA, axial STIR FSE, axi al T2-weighted SS-FSE, axial T2-weighted FS SS-FSE, axial diffusion-weighted SE, axial dual-echo T1-w eighted FSPGR, and axial and coronal T1-weighted LAVA. Postcontrast axial T1-weighted LAVA images wer e obtained in a time course. Postcontrast coronal T1-weighted LAVA images were obtained. COMPARISON: Ultrasound studies dated 12/30/2023 and dating back to 01/29/2008 FINDINGS: Arch size is normal. No pericardial or pleural effusion. Small sliding-type hiatal hernia. Cholecyste ctomy clips at the gallbladder fossa. Mild liver signal dropout on opposed phase imaging consistent w ith mild diffuse hepatic steatosis. No intrahepatic biliary ductal dilation. The common bile duct is dilated to 10 mm and tapers distally with no evident obstructing stones or masses this is likely rela jacques to the prior cholecystectomy. Spleen, pancreas and bilateral adrenal glands are normal. A few enoc ateral T2 hyperintense nonenhancing renal cysts the largest measuring 7 mm at the upper poles of both kidneys. Visualized bowels are unremarkable with no obstruction. No pathologically enlarged abdomina l or upper pelvic lymphadenopathy. Normal bone marrow signal throughout. IMPRESSION: 1. Mild diffuse hepatic steatosis. 2. Small sliding-type hiatal hernia. Reviewed, dictated and finalized at location A.
== END 2024-05-28 13:29 | disposition home or self-care (01) ==
PROVIDERS: PCP Family Medicine; Visit Provider Nurse Practitioner Family
DX: R74.8 Abnormal levels of other serum enzymes (principal); K76.0 Fatty (change of) liver, not elsewhere classified
CPT/HCPCS: 74183; A9577

== ENCOUNTER 2024-07-16 13:17 | Outpatient (CLI) | payer OTHER, SELFPAY ==
[2024-07-16 13:34] LABS: Basophils Absolute Auto 0.1 K/mm3 (0.0-0.1); Basophils Percent Auto 2.3 % (0.2-1.2); Eosinophils Absolute Auto 0.4 K/mm3 (0-0.3); Eosinophils Percent Auto 7.6 % (0-4.4); Hematocrit 46.3 % (37.0-47.0); Hemoglobin 14.8 g/dL (12.0-15.0); Immature Granulocyte Absolute 0.01 K/mm3 (0.00-0.031); Immature Granulocyte Percent A 0.2 % (0-0.5); Lymphocytes Absolute Auto 1.59 K/mm3 (0.9-3.2); Lymphocytes Percent Auto 31.1 % (18.3-44.2); Mean Corpuscular Hemoglobin 30.5 pg (26-34); Mean Corpuscular Volume 95.3 fl (80-100); Mean Platelet Volume 12.1 fl (7.4-10.4); Monocytes Absolute Auto 0.4 K/mm3 (0.1-0.6); Monocytes Percent Auto 7.6 % (2.6-8.5); Neutrophils Absolute Auto 2.6 K/mm3 (1.3-6.7); Neutrophils Percent Auto 51.2 % (45.5-73.1); Platelet Count Result 190 k/mm3 (150-375); Red Blood Count 4.86 M/mm3 (4.2-5.4); Red Cell Distribution Width 13.5 % (11.5-14.5); White Blood Count 5.1 K/mm3 (4.5-10.0)
[2024-07-16 13:48] LABS: Alanine Aminotransferase 65 U/L (6-35); Albumin Level 4.3 g/dL (3.5-5.1); Alkaline Phosphatase 107 U/L (38-126); Anion Gap 5 mmol/L (4-12); Aspartate Amino Transferase 62 U/L (14-36); Blood Urea Nitrogen 19 mg/dL (7-17); Calcium 9.3 mg/dL (8.4-10.2); Carbon Dioxide 29 mmol/L (22-30); Chloride 105 mmol/L (98-107); Cholesterol 207 mg/dL (0-200); Estimated Glomerular Filt Rate 60; Glucose 108 mg/dL (65-110); HDL Direct 46 mg/dL; Potassium 4.1 mmol/L (3.4-5.0); Sodium 139 mmol/L (137-145); Triglycerides 139 mg/dL (<150)
[2024-07-16 14:01] LABS: LDL Cholesterol Direct 116 mg/dL
[2024-07-16 14:07] LABS: Vitamin D 25 Hydroxy 37.7 ng/mL
[2024-07-16 14:32] LABS: Hemoglobin A1C 5.9 % (<5.7)
== END 2024-07-16 13:18 | disposition home or self-care (01) ==
LOC: ANHLAB 13:18
PROVIDERS: PCP Family Medicine; Visit Provider Family Medicine
DX: R73.03 Prediabetes (principal); E03.9 Hypothyroidism, unspecified; E55.9 Vitamin D deficiency, unspecified; E78.2 Mixed hyperlipidemia; R53.83 Other fatigue; Z78.9 Other specified health status
CPT/HCPCS: 36415; 80053; 80061; 82306; 83036; 84443; 85025; 86735; 86762; 86765

== ENCOUNTER 2025-01-31 13:57 | Outpatient (CLI) | payer MEDICARE, OTHER, SELFPAY ==
[2025-01-31 15:05] LABS: Hematocrit 46.5 % (37.0-47.0); Hemoglobin 14.9 g/dL (12.0-15.0); Immature Granulocyte Percent A 0.2 % (0-0.5); Immature Platelet Fraction Pct 10.4 % (0.9-11.2); Lymphocytes Absolute Auto 1.53 K/mm3 (0.9-3.2); Mean Corpuscular HGB Conc 32.0 g/dl (32-36); Mean Corpuscular Hemoglobin 30.6 pg (26-34); Mean Corpuscular Volume 95.5 fl (80-100); Nucleated Red Blood Cells Absolute Auto 0.000 K/mm3 (0.0-0.012); Nucleated Red Blood Cells Perc 0.0 % (0.0-0.2); Platelet Count Result 185 k/mm3 (150-375); Red Blood Count 4.87 M/mm3 (4.2-5.4); White Blood Count 5.1 K/mm3 (4.5-10.0)
[2025-01-31 15:22] LABS: Alanine Aminotransferase 37 U/L (6-35); Albumin Level 4.3 g/dL (3.5-5.1); Alkaline Phosphatase 110 U/L (38-126); Anion Gap 7 mmol/L (4-12); Aspartate Amino Transferase 48 U/L (14-36); Bilirubin,Total 1.0 mg/dL (0.2-1.3); Blood Urea Nitrogen 18 mg/dL (7-17); Calcium 9.8 mg/dL (8.4-10.2); Carbon Dioxide 28 mmol/L (22-30); Chloride 102 mmol/L (98-107); Cholesterol 195 mg/dL (0-200); Estimated Glomerular Filt Rate 56; Glucose 88 mg/dL (65-110); HDL Direct 38 mg/dL; Potassium 3.6 mmol/L (3.4-5.0); Sodium 137 mmol/L (137-145); Total Protein 7.7 g/dL (6.3-8.2); Triglycerides 126 mg/dL (<150)
[2025-01-31 15:58] LABS: Thyroid Stimulating Hormone 3.160 uIU/mL (0.465-4.680)
[2025-01-31 16:22] LABS: Free T4 Free Thyroxine 1.21 ng/dL (0.78-2.19)
[2025-01-31 17:53] LABS: Hemoglobin A1C 5.8 % (<5.7)
== END 2025-01-31 13:58 | disposition home or self-care (01) ==
PROVIDERS: PCP Student in an Organized Health Care Education/Training Program; Visit Provider Student in an Organized Health Care Education/Training Program
DX: R73.03 Prediabetes (principal); E03.9 Hypothyroidism, unspecified; K76.0 Fatty (change of) liver, not elsewhere classified; E83.119 Hemochromatosis, unspecified; R53.83 Other fatigue
CPT/HCPCS: 36415; 80053; 80061; 83036; 84439; 84443; 85025; 85055